=== PATIENT | female | born 1955 | race African-American/Black ===

== ENCOUNTER 2022-06-02 18:03 | Emergency (ER) | payer MEDICAID ==
[~2022-06-02] VITALS: Ht 154.9 cm; Wt 54.5 kg
[2022-06-02 20:45] VITALS: BP 132/68
[2022-06-02] MEDS: KETOROLAC TROMETHAMINE 10 MG TABLET PO ONE (20:59)
== END 2022-06-02 22:45 | disposition home or self-care (01) ==
LOC: EMS 18:06
DX: M25.561 Pain in right knee (principal); M17.11 Unilateral primary osteoarthritis, right knee; I10 Essential (primary) hypertension
CPT/HCPCS: 99283